=== PATIENT | female | born 1945 | race Caucasian/White ===

== ENCOUNTER 2017-03-08 12:00 | Inpatient (IN) | payer MEDICARE, BC ==
--- NOTE | 2017-03-08 12:50 | CT ---
NONCONTRAST CT OF THE BRAIN: INDICATION: Stroke-like symptoms with left-sided weakness, slurred speech, difficulty in arousal. COMPARISON: Prior noncontrast CT of the brain dated 12/15/16. FINDINGS: Chronic small-vessel white matter ischemic changes likely similar to the comparison examination. Sep roshni pellucidum and third ventricle are midline. No definite acute infarct, hemorrhage, or hydrocepha elida. The skull and extracranial soft tissues are unremarkable.. IMPRESSION: Stable chronic ischemic change. No definite acute intracranial abnormality is evident. Findings were called to the ER department at 12:22 p.m. on 03/08/17. CODE CR POS: JESSI
[2017-03-08 13:04] LABS: #Lymphocytes 0.8 thou/uL (1.20-3.40); #Monocytes 0.5 thou/uL (0.11-0.59); #Neutrophils 3.8 thou/uL (1.40-6.50); %Eosinophils 0.8 % (0.0-10.0); %Lymphocytes 14.7 % (21.0-51.0); %Monocytes 10.2 % (0.0-10.0); Hematocrit 35.6 % (36.0-47.0); Mean Platelet Volume 5.9 fL (7.4-10.4); Red Blood Cell (RBC) Count 3.72 mill/uL (4.20-5.40); White Blood Cell (WBC) Count 5.1 thou/uL (4.8-10.8)
[2017-03-08 13:10] LABS: PTT 27.4 SEC (22.9-36.1); Prothrombin Time 14.1 SEC (12.0-14.7)
[2017-03-08 13:16] LABS: ALT (SGPT) 21 U/L (8-55); AST (SGOT) 14 U/L (5-34); Alkaline Phosphatase 106 U/L (40-150); Anion Gap 9 mmol/L (10-20); BUN (Urea Nitrogen) 22 mg/dL (9.8-20.1); Bilirubin, Total 0.3 mg/dL (0.2-1.2); CK (CPK) 10 U/L (29-168); Calc. Creatinine Clearance 0 mL/min (70-130); Carbon Dioxide 30 mmol/L (23-31); Chloride 95 mmol/L (98-107); Estimated GFR-MDRD 35; Globulin 1.9 g/dL (2.4-3.5); Protein, Total 5.4 g/dL (6.0-8.3)
[2017-03-08 13:20] LABS: Troponin I 0.013 ng/mL (< 0.028)
--- NOTE | 2017-03-08 13:43 | CT ---
CT PERFUSION EVALUATION WITH A CTA OF THE NECK AND CTA OF THE HEAD UTILIZING IV CONTRAST AND 3D REFOR MATTED IMAGING: INDICATION: A 71-year-old female with stroke-like symptoms lasting for 1 hour prior to arrival with left-sided we akness, slurred speech, and difficulty in arousing the patient. COMPARISON: Prior exam dated 12/15/16. FINDINGS: When evaluating the perfusion images, the axial blood volume appears symmetric. There is some increa sed mean transit time involving diffusely the right cerebral hemisphere when compared to the contrala teral left cerebral hemisphere. The relative blood flow appears symmetric. When compared to the emanuel or CT examination, there has been some reconstitution of flow within the distal right MCA and opacifi cation of the MCA cortical branch is likely through collateralization. The remaining of the right in ternal carotid artery appears widely patent. Left carotid artery appears widely patent. The ACAs an d left MCA appear widely patent. The posterior cerebral arteries appear widely patent. The basilar and vertebral arteries appear widely patent. The prevertebral soft tissues appear similar-appearing. There is some soft tissue prominence seen along the right posterolateral aspect of the false vocal cords on image 102 series 2 which appear similar. Lung apices are clear. No acute osseous abnormali ty is evident. IMPRESSION: 1. 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 No new hemodynamically significant stenosis is evident. 2. Findings were called to Dr. Wesley at 12:45 p.m. on 05/08/16. 3. There are small areas of soft tissue prominence involving the posterior right false vocal cords w hich are stable to prior examination. Focal soft tissue lesion in this location cannot be entirely e xcluded. ENT consultation is recommended. No pathologically enlarged lymph nodes are evident. 4. There is prominent chronic small-vessel white matter ischemic change. CODE CR POS: JESSI
--- NOTE | 2017-03-08 13:54 | RAD ---
CHEST ONE VIEW HISTORY: Slurred speech. Dyspnea. COMPARISON: 11/17/2016 FINDINGS: Cardiac silhouette and pulmonary vasculature are unremarkable. Mediastinum is midline. There is no confluent airspace consolidation or evidence of pneumothorax. manager monitoring leads overlie the ches t. A rounded sphere overlying the left upper quadrant is partially visualized and may represent a pe rcutaneous feeding catheter. IMPRESSION: Chronic type findings appear stable. No active cardiopulmonary abnormalities are demonstrated. POS: JESSI
[2017-03-08] MEDS ORDERED: ISOVUE-370 76%-LOCM 1 ML ONE (15:53)
[2017-03-08] MEDS ORDERED: Sodium Chloride 0.9% 1,000 ML IV SCH (17:38)
[2017-03-08] MEDS ORDERED: Polyethylene Glycol 3350 17 GM Packet PO PRN (19:38)
[2017-03-08] MEDS ORDERED: Atorvastatin Calcium 20 MG TAB PO SCH (21:00)
[2017-03-08] MEDS: Sodium Chloride 0.9% 1,000 ML IV SCH (21:00)
[2017-03-08] MEDS: Ondansetron ODT 8 MG TAB PO SCH (21:08)
[2017-03-08] MEDS: Acetaminophen 500 MG TAB PO SCH (21:09)
[2017-03-08] MEDS: Magnesium Oxide 250 MG TAB PO SCH (21:09)
[2017-03-08] MEDS: Cipro 250 MG TAB PO SCH (21:09)
--- NOTE | 2017-03-08 21:35 | CON ---
DATE OF CONSULTATION: 03/08/2017 CONSULTING PHYSICIAN: Hospitalist Service. IMPRESSION: I believe that this woman's transient focal deficits on the left are related to a drop i n perfusion pressure related to hypotension and bradycardia. We are awaiting Dr. Moon's followup who was planning to do some cardiac monitoring. The sons report they have documented pulse rates in the 40s as well as blood pressures in the 60/30 range. She has been having some transient left hemip aresis when this occurs. It usually resolves in 5-10 minutes at most. She had a 2-hour episode prio r to admission. Her CTA showed the same chronic findings of an occlusion in the right middle cerebra l artery with some reconstitution of flow across the cortical collaterals. She is already on maximum antiplatelet therapy. The only option I could see at this point would be maintaining perfusion pres sure through a pacemaker possibly and modification of her blood pressure medications to try to preven t the hypotension.
[2017-03-09] MEDS: Cipro 250 MG TAB PO SCH ×2 (05:23→21:50)
[2017-03-09 05:54] LABS: #Eosinphils 0.2 thou/uL (0.0-0.7); #Lymphocytes 0.8 thou/uL (1.20-3.40); #Monocytes 0.6 thou/uL (0.11-0.59); #Neutrophils 2.8 thou/uL (1.40-6.50); %Basophils 0.2 % (0.0-1.0); %Eosinophils 4.8 % (0.0-10.0); %Lymphocytes 18.8 % (21.0-51.0); %Monocytes 13.2 % (0.0-10.0); Hematocrit 34.2 % (36.0-47.0); Red Blood Cell (RBC) Count 3.63 mill/uL (4.20-5.40); White Blood Cell (WBC) Count 4.4 thou/uL (4.8-10.8)
--- NOTE | 2017-03-09 06:17 | HP ---
DATE OF ADMISSION: 03/08/2017 HISTORY OF PRESENT ILLNESS: This is a 71-year-old white female with a history of CLL dating back to 2009, treated at [facility], who presents with a syncopal episode. The patient has a history of par oxysmal atrial fibrillation. Over the past year, she has had multiple episodes in which she is sitti ng at the chair and she simply tilts her head to the right and she becomes very limped and passes out . She has been to the hospital several times. This was worked up in 11/[address] Mcfarlane. She fierro s had 2 EEGs which were unremarkable with no acute changes on MRI. The etiology of her syncopal epis odes was felt to be cardiac in origin. Dr. Moon was consulted and we made some recommendations. However, the patient will also follow up. She has been seen at [facility] on several occasions. She was also recently discharged from [facility] yesterday and had a recurr ent episode this morning and was brought to the [facility] by [facility]. At this time, the 2 son s state that she is back to baseline, but just weak on her left side. Her blood pressure was noted t o be slightly elevated with a pulse ox of 99%. The patient is talking and answering questions approp riately. She is therefore being readmitted for reevaluation and treatment focussed on her cardiac hi story. PAST MEDICAL HISTORY: Includes CLL followed by Dr. Joy in [facility], paroxysmal atrial fibrill ation, recurrent UTI, renal cell carcinoma, status post left nephrectomy, reflex neurogenic bladder, allergies, hypertension, hyperlipidemia. She is a do not resuscitate. PAST SURGICAL HISTORY: Left hip fracture 09/2016, total hysterectomy, stem cell transplants, PEG tub e, T&A. MEDICATIONS: Cipro, Plavix, Lipitor, albuterol, amiodarone 200 q. day, vitamin D 1000 q. day, Flonas e, Keppra 500 b.i.d., magnesium, metoprolol 100 q. day, midodrine 2.5 t.i.d., Protonix 40 q. day, Jean-Paul aLax p.r.n. FAMILY HISTORY: Unremarkable. SOCIAL HISTORY: She is and has two sons, 4 grandkids, cared for by her son. She does not sm monico, does not drink. 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 REVIEW OF SYSTEMS: As above. PHYSICAL EXAMINATION: VITAL SIGNS: Temperature 98.3, pulse 45, respirations 16, blood pressure 212/92, pulse ox 99. GENERAL: The patient is in no acute distress at this time. HEENT: Relatively clear. NECK: Supple. HEART: Regular rate and rhythm. LUNGS: Clear. ABDOMEN: Soft. EXTREMITIES: No edema. NEUROLOGIC: Cranial nerves II through XII appear to be intact. She does have left-sided weakness of her left upper and lower extremity. Dr. Mcfarlane is present. LABORATORY DATA: White count 5.1, H&H 11 and 35. INR 1.1. Sodium 130, creatinine 1.45, blood sugar 152. ASSESSMENT: 1. Syncopal episode appears most likely to be cardiac in origin. 2. Chronic 1+ lymphocytic leukemia followed by Dr. Joy in [facility]. 3. Paroxysmal atrial fibrillation. 4. Recurrent urinary tract infection. 5. History of renal cell cancer, status post left nephrectomy. 6. Neurogenic bladder. 7. Allergies. PLAN: 1. Consult Neurology, discussed with Dr. Mcfarlane. 2. Consult Cardiology. 3. Hold metoprolol. 4. Suspect the patient's condition is related to her cardiac status. She may be having episodes of bradycardia. She may have sick sinus syndrome also. Dr. Moon will be reconsulted. We will [facility] for arrhythmias and consider pacemaker placement possibly.
[2017-03-09] MEDS ORDERED: Zolpidem Tartrate 5 MG TAB PO PRN (07:50)
--- NOTE | 2017-03-09 08:29 | PRG ---
DATE OF SERVICE: 03/09/2017 SUBJECTIVE: The patient is doing well this morning. No complaints of any chest pain, shortness of b reath, nausea, vomiting or headache. OBJECTIVE: VITAL SIGNS: Blood pressure 208/82, temperature 97.9, pulse 59, respiration rate 18, pulse ox 96. HEART: Regular rate and rhythm. LUNGS: Clear. ABDOMEN: Soft. EXTREMITIES: With no edema. LABORATORY: White count 4.4, H&H 11 and 34. ASSESSMENT: 1. Syncope, probably cardiac in origin. 2. Chronic lymphocytic leukemia, stable, followed by Dr. Joy. 3. Paroxysmal atrial fibrillation. 4. Recurrent urinary tract infection. 5. History of renal cell carcinoma, status post left nephrectomy. 6. Neurogenic bladder. 7. Allergies. PLAN: 1. Appreciate Dr. Mcfarlane. 2. Awaiting Dr. Moon this morning. 3. Will begin losartan 50 mg p.o. q.a.m. and Norvasc 5 mg p.o. at bedtime. 4. Will reconfirm the DNR status with the sons.
[2017-03-09] MEDS: Acetaminophen 500 MG TAB PO SCH ×3 (10:19→21:50)
[2017-03-09] MEDS: Clopidogrel Bisulfate 75 MG TAB PO SCH (10:20)
[2017-03-09] MEDS: Atorvastatin Calcium 40 MG TAB PO SCH (10:20)
[2017-03-09] MEDS: Magnesium Oxide 250 MG TAB PO SCH ×2 (10:21→21:50)
[2017-03-09] MEDS: Losartan Potassium 25 MG TAB PO SCH (10:21)
[2017-03-09] MEDS: Ondansetron ODT 8 MG TAB PO SCH ×2 (10:21→21:50)
[2017-03-09] MEDS: Multivits W-Minerals Liquid 15mL UDCUP PO SCH (14:07)
--- NOTE | 2017-03-09 14:21 | HP-2 ---
DATE OF H AND P: 03/09/2017 TIME OF SERVICE: 1:27 p.m. CODE STATUS: DNR. PRIMARY CARE PHYSICIAN: Rizwan Wilson M.D. ATTENDING: Ej Felicaino M.D., Cardiology. HISTORIAN: Patient. CHIEF COMPLAINT: Syncope. HISTORY OF PRESENT ILLNESS: This is a 71-year-old female with history of atrial fibrillation, questionable seizure history, who presents for syncope of 1 year. She states that she had a recent episode 1 day ago. This happened while she was sitting down. She did not have any nausea, diaphoresis, dizziness , headache or chest discomfort. She was tilting her head to the right side and went limp. She stated that her syncope episode was witnessed by her son and that she was out for approximately 1 minute. She woke up without any confusion or any other symptoms. She was then brought to [facility]. She states that she has had these episodes ongoing for about a year now and at home she measured her blood pressure of systolic 80, even pulse down in the 40s. She was previously worked up for this issue in 11/2016. At that time, Dr. Mcfarlane with Neurology felt that it was unlikely to be of neuro causes and that she had 2 EEG done, both of which were negative. She also was seen by Dr. Moon with Cardiology who felt that this may be a cardiac issue and recommended loop monitoring and to follow up with him for that as an outpatient. However, the patient stated that she has not had a chance to do so yet. At this time, the patient says that she does not have any current dizziness or any further syncope episode. Patient's son and review of records from [facility] indicate patient was recently diagnosed with acute ischemic stroke and started on plavix 3 days ago. PAST MEDICAL HISTORY: 1. CLL. 2. Paroxysmal atrial fibrillation. 3. Recurrent UTI. 4. Renal cell carcinoma, status post left nephrectomy. 5. Hypertension. 6. Hyperlipidemia. 7. Neurogenic bladder. 8. Likely recent stroke. PAST SURGICAL HISTORY: 1. Left hip surgery. 2. Hysterectomy. 3. PEG tube placement. 4. Stem Cell Transplant MEDICATIONS: 1. Tylenol 500 mg p.o. t.i.d. 2. Amiodarone 200 mg p.o. daily. 3. Amlodipine 500 mg p.o. at bedtime. 4. Aspirin 81 mg p.o. daily. 5. Atorvastatin 40 mg p.o. daily. 6. Vitamin D3 1000 units p.o. daily. 7. Ciprofloxacin 250 mg p.o. b.i.d. 8. Plavix 75 mg p.o. daily. 9. Multivitamin. 10. Losartan 50 mg p.o. daily. 11. Magnesium oxide 500 mg p.o. b.i.d. 12. Zofran 8 mg p.o. b.i.d. 13. Pantoprazole 40 mg p.o. b.i.d. 14. MiraLax 17 grams p.o. p.r.n. for constipation. 15. Zolpidem 5 mg p.o. at bedtime p.r.n. for insomnia. FAMILY HISTORY: She states that her son has a pacemaker placed at age 40 for likely atrial fibrillation. SOCIAL HISTORY: She states that she never or used alcohol and she lives at home with her son. ALLERGIES: Denies any known drug allergies. REVIEW OF SYSTEMS: General: Denies fever, chills, night sweats, or fatigue. Eyes: Denies vision change. ENT: Denies nasal congestion. Respiratory: Denies coughing or shortness of breath. Cardiovascular: Denies chest pain or palpitations. GI: Denies nausea, vomiting or abdominal pain. : Endorses recurrent UTI. Skin: Denies any skin lesions. Musculoskeletal: Denies pain or tenderness. Neurologic: Endorses left-sided weakness and syncope. Denies dizziness or headaches. PHYSICAL EXAMINATION: VITAL SIGNS: Blood pressure 200/80, temperature 97.8, pulse 68, respirations 16 , O2 95% on room air. GENERAL: Alert, oriented, not in acute distress, but does appear fatigued. EYES: Sclerae not injected. ENT: Oropharynx is moist. NECK: Supple, without lymphadenopathy and a good carotid upstroke was present. CARDIOVASCULAR: Regular rate and rhythm. There was a faint 1/6 systolic murmur present, loudest in the right upper sternal border. RESPIRATORY: Normal effort without retraction. Clear to auscultation bilaterally. SKIN: Warm and dry without cyanosis or lesion. ABDOMEN: Soft, not tender to palpation. Bowel sounds heard throughout. There is a PEG tube in place and site is clean without discharge. EXTREMITIES: No cyanosis or pitting edema. MUSCULOSKELETAL: Muscle strength was 5/5 on the right side, but 4/5 in upper and lower extremities. NEUROLOGIC: Sensation was grossly intact. LABORATORY DATA: WBC 4.4, hemoglobin 11.4, platelet 247. Sodium 136, potassium 3.6, chloride 95, bicarbonate 30, creatinine 1.45, BUN 22, glucose 102. CT angio of head, chronic occlusion of right MCA. CT without contrast of brain, chronic small vessel white matter ischemic change from CT comparisons of 12/15/2016. Chest x-ray, no acute cardiopulmonary abnormalities are demonstrated. ASSESSMENT AND PLAN: 1. Syncope, in this patient her history and physical exam would suggest likely cardiac causes. Plan is for overnight monitoring for any dysrhythmia, follow with outpatient loop monitoring to detect dysrhythmia. Other causes consider is orthostatic hypotension though at this time the patient is actually hypertensive, consider aortic stenosis as patient did have mild to moderate aortic stenosis on previous echocardiogram. We will get a repeat echocardiogram at this visit. 2. Atrial fibrillation. Patient is currently in sinus rhythm. We will recommend patient follow up as an outpatient for her atrial fibrillation and for review of her amiodarone and metoprolol, we will likely reduce her metoprolol by 50% at this visit due to her syncopal episode. 3. Acute kidney injury. The patient does have a creatinine above baseline from approximately 1 to 1.45. This may be a result of her hypertension, currently being treated. 4. Hypertensive urgency. The patient is currently on losartan and Norvasc in addition to her normal blood pressure medications. [facility]
[2017-03-09 15:14] LABS: Bilirubin Negative (Negative); Blood, Urine Negative (Negative); Glucose, Urine (Dipstick) Negative (Negative); Ketone, Urine Negative (Negative); Nitrite Negative (Negative); Protein, Urine (Dipstick) Negative (Neg-Trace); Urobilinogen 0.2 mg/dL (0.2-1.0)
[2017-03-09 15:16] LABS: Bacteria/HPF None Seen HPF (None Seen); Hyaline Casts/LPF 0-3 HYALINE CAST LPF (0-3 Hyaline); RBC/HPF 0-3 HPF (0-3); Squamous Epithelial None Seen HPF (0-3); WBC/HPF 0-3 HPF (0-3)
[2017-03-09] MEDS: Sodium Chloride 0.9% 1,000 ML IV SCH (15:54)
[2017-03-09 16:17] VITALS: BMI 24.4
--- NOTE | 2017-03-09 21:17 | CON ---
DATE OF CONSULTATION: 03/09/2017 HISTORY OF PRESENT ILLNESS: Paulette Nixon is a 71-year-old white female, I initially evaluated in 11/2016. She apparently was hospitalized in August or September for a prolonged period of time at [facility] here in town. She says her vision would go black and she would feel lightheaded but says later this would resolve. She apparently never had true syncope with those episodes. Two EEGs there were apparently normal; however, she was placed on Keppra. It was felt that she had near syncopal episodes, losing her vision for 5-10 seconds at a time and this would return, but never had true syncope on evaluation in November. She was monitored and was somewhat bradycardiac and her beta santy was discontinued. She was to come to the office at discharge to have a 30-day monitor placed and multiple attempts were made to get her into the office to get that taken care of, the last of which was 01/31/2017, however, she never did come for monitoring. She again had recently been hospitalized at [facility] and apparently was discharged a day or two prior to this admission. She now is hospitalized with recurrent episode of left-sided weakness. Reportedly, she has a heart rate of 40 at times at home even after stopping the beta santy; however, to my knowledge that has never been documented. It was felt by Dr. Mcfarlane that these symptoms were probably due to hypotension and bradycardia. PAST MEDICAL HISTORY: Paroxysmal atrial fibrillation, chronic lymphocytic leukemia status post stem cell transplant, left renal cell carcinoma with partial nephrectomy, prolonged hospitalization for sepsis syndrome at [facility]. OPERATIONS: Hysterectomy, tonsillectomy, stem cell transplant, left kidney partial nephrectomy, neuroma removal, right carpal tunnel repair, PEG tube placement, hip fracture, status post open reduction internal fixation in 2016. MEDICATIONS: At home include amiodarone 200 mg daily, aspirin 81 daily, atorvastatin 40 at bedtime, Cipro 250 b.i.d., clopidogrel 75 daily, magnesium 250 b.i.d., pantoprazole 40 b.i.d., MiraLax. Metoprolol 100 is listed amongst her home medications, although I am uncertain if she is taking that. ALLERGIES: None. SOCIAL HISTORY: She is a . Her , Brown Nixon was a patient of mine. FAMILY HISTORY: Father had heart disease. REVIEW OF SYSTEMS: Twelve point review of systems otherwise unremarkable. PHYSICAL EXAMINATION: VITAL SIGNS: Blood pressure of 174/86, pulse of 61. HEENT: PERRL. NECK: Supple. CHEST: Clear. CARDIAC: S1 and S2 are normal, without any S3 or S4. There is 1-2/6 systolic murmur in the aortic area. ABDOMEN: Normal bowel sounds, without tenderness or organomegaly. EXTREMITIES: Revealed no clubbing, cyanosis or edema. NEUROLOGIC: Grossly intact. SKIN: Warm and dry. LABORATORY DATA: EKG revealed normal sinus rhythm with a rate of 63 beats per minute, left axis deviation. Hemoglobin 11.4, hematocrit 34.2, white count 4400 , platelets 247. Sodium 135, potassium 3.6, chloride 95, carbon dioxide 30, BUN 22, creatinine 1.45. Cardiac enzymes were unremarkable. Cholesterol 138, triglycerides 96, HDL 41, and LDL 78. IMPRESSION: 1. Left-sided weakness, probable TIA secondary to hypotension. Apparently at home, she has had heart rates in the 40s although it has never been documented. It also somewhat unclear if she is still taking metoprolol 100 at home, this was stopped last admission. 2. History of atrial fibrillation, currently on amiodarone. 3. Dysphagia status post PEG tube placement. 4. History of stroke. 5. Probable recurrent aspiration in the past. 6. Chronic lymphocytic leukemia. 7. Partial nephrectomy for renal cell carcinoma. PLAN: Multiple attempts were made to try to get the patient to the office for a 30-day outpatient monitor to follow her heart rate; however, she never did come to get the monitor. Therefore, I would recommend monitoring over the course in the next 2 or 3 days to see if she has any recurrence of extreme bradycardia. If she does, then pacemaker should be placed. On the other hand, if she has monitored and no significant arrhythmias are seen, then I would recommend placing a LINQ implantable loop recorder. JESSICA
[2017-03-09] MEDS: Amlodipine 5 MG TAB PO SCH (21:50)
[2017-03-10] MEDS: Cipro 250 MG TAB PO SCH ×2 (05:12→21:09)
[2017-03-10] MEDS: Multivits W-Minerals Liquid 15mL UDCUP PO SCH (09:24)
[2017-03-10] MEDS: Atorvastatin Calcium 40 MG TAB PO SCH (09:25)
[2017-03-10] MEDS: Acetaminophen 500 MG TAB PO SCH ×3 (09:25→21:09)
[2017-03-10] MEDS: Losartan Potassium 25 MG TAB PO SCH (09:25)
[2017-03-10] MEDS: Clopidogrel Bisulfate 75 MG TAB PO SCH (09:25)
[2017-03-10] MEDS: Magnesium Oxide 250 MG TAB PO SCH ×2 (09:26→21:10)
[2017-03-10] MEDS: Ondansetron ODT 8 MG TAB PO SCH ×2 (09:26→21:10)
[2017-03-10] MEDS: Sodium Chloride 0.9% 1,000 ML IV SCH (14:16)
[2017-03-10] MEDS: Amlodipine 5 MG TAB PO SCH (21:09)
[2017-03-11] MEDS: Cipro 250 MG TAB PO SCH ×2 (05:05→22:06)
[2017-03-11] MEDS: Sodium Chloride 0.9% 1,000 ML IV SCH (07:13)
[2017-03-11] MEDS: Clopidogrel Bisulfate 75 MG TAB PO SCH (09:20)
[2017-03-11] MEDS: Losartan Potassium 25 MG TAB PO SCH (09:20)
[2017-03-11] MEDS: Magnesium Oxide 250 MG TAB PO SCH ×2 (09:20→22:10)
[2017-03-11] MEDS: Acetaminophen 500 MG TAB PO SCH ×3 (09:20→22:06)
[2017-03-11] MEDS: Ondansetron ODT 8 MG TAB PO SCH ×2 (09:20→22:12)
[2017-03-11] MEDS: Multivits W-Minerals Liquid 15mL UDCUP PO SCH (09:21)
[2017-03-11] MEDS: Atorvastatin Calcium 40 MG TAB PO SCH ×2 (10:12→22:09)
[2017-03-11] MEDS ORDERED: Milk Of Magnesia 30 ML UDCUP PO PRN (12:26)
[2017-03-11] MEDS ORDERED: Ondansetron ODT 8 MG TAB PO PRN (17:05)
[2017-03-11] MEDS: Amlodipine 10 MG TAB PO SCH (22:07)
[2017-03-12] MEDS: Sodium Chloride 0.9% 1,000 ML IV SCH (06:03)
[2017-03-12] MEDS: Cipro 250 MG TAB PO SCH ×2 (06:05→22:17)
[2017-03-12] MEDS ORDERED: Lidocaine 2% w/Epinephrine 1:200K 20 ML VIAL ONE (06:36)
[2017-03-12] MEDS ORDERED: Lidocaine 1% w/Epinephrine 1:200K 30 ML VIAL ONE (08:15)
--- NOTE | 2017-03-12 08:39 | PRG ---
DATE OF SERVICE: 03/12/2017 SUBJECTIVE: No complaints of any chest pain, shortness of breath, nausea or vomiting by patient. Th e patient has had no syncopal episodes since admission. OBJECTIVE: VITAL SIGNS: Temperature 98.6, pulse 90, respirations 16, pulse ox 97, blood pressure 146/89. HEART: Regular rate and rhythm. LUNGS: Clear. ABDOMEN: Soft. LABS: None. ASSESSMENT: 1. Syncopal episode, most likely cardiac in origin; however, no arrhythmias noted thus far on teleme try. 2. Chronic lymphocytic leukemia, followed by Dr. [facility] and [facility]. 3. Paroxysmal atrial fibrillation. 4. Recurrent urinary tract infection. 5. History of renal cell cancer, status post left nephrectomy. 5. Neurogenic bladder. 6. Allergies. PLAN: 1. Discuss with Dr. Moon. The plan is to place an implantable loop recorder to evaluate for arr hythmias. 2. We will consult physical therapy. The patient normally does sit in the chair at home. Her episo patrice also corresponds frequently in a chair.
[2017-03-12 08:42] LABS: #Eosinphils 0.2 thou/uL (0.0-0.7); #Lymphocytes 0.9 thou/uL (1.20-3.40); #Monocytes 0.5 thou/uL (0.11-0.59); %Basophils 0.4 % (0.0-1.0); %Eosinophils 4.1 % (0.0-10.0); %Lymphocytes 15.1 % (21.0-51.0); %Monocytes 9.1 % (0.0-10.0); Hematocrit 34.2 % (36.0-47.0); Red Blood Cell (RBC) Count 3.59 mill/uL (4.20-5.40); White Blood Cell (WBC) Count 5.6 thou/uL (4.8-10.8)
[2017-03-12 09:05] LABS: Anion Gap 9 mmol/L (10-20); BUN (Urea Nitrogen) 23 mg/dL (9.8-20.1); Calc. Creatinine Clearance 42 mL/min (70-130); Carbon Dioxide 34 mmol/L (23-31); Chloride 94 mmol/L (98-107); Estimated GFR-MDRD 44
[2017-03-12] MEDS: Acetaminophen 500 MG TAB PO SCH ×3 (09:45→22:17)
[2017-03-12] MEDS: Magnesium Oxide 250 MG TAB PO SCH ×2 (09:46→22:17)
[2017-03-12] MEDS: Ondansetron ODT 8 MG TAB PO SCH ×2 (09:46→22:17)
[2017-03-12] MEDS: Losartan Potassium 25 MG TAB PO SCH (09:46)
[2017-03-12] MEDS: Clopidogrel Bisulfate 75 MG TAB PO SCH (09:46)
[2017-03-12] MEDS: Multivits W-Minerals Liquid 15mL UDCUP PO SCH (11:38)
[2017-03-12] MEDS: Amlodipine 10 MG TAB PO SCH (22:17)
[2017-03-12] MEDS: Atorvastatin Calcium 40 MG TAB PO SCH (22:18)
[2017-03-13] MEDS: Sodium Chloride 0.9% 1,000 ML IV SCH (01:57)
[2017-03-13] MEDS: Cipro 250 MG TAB PO SCH (05:57)
--- NOTE | 2017-03-13 08:30 | DIS ---
DISCHARGE DIAGNOSES: 1. Syncope episode, probable cardiac in origin. 2. Chronic lymphocytic leukemia. 3. Paroxysmal atrial fibrillation. 4. Recurrent urinary tract infection. 5. History of renal cell cancer, status post left nephrectomy. 6. Neurogenic bladder. 7. Allergies. 8. Prognosis poor. DISCHARGE MEDICATIONS: Amiodarone 200 mg daily, Norvasc 10 p.o. at bedtime, aspirin 81 mg, atorvast atin 40 daily, vitamin D3 1000 mg daily, Plavix 75 mg daily, losartan 25 mg daily, multivitamin daily , Protonix 40 daily. BRIEF HISTORY: This is a 71-year-old white female with history of CLL dating back to 2009, treated [facility] who presents with a syncopal episode. The patient has had a history of paroxysmal at rial fibrillation. Over the past year she has had multiple episodes where she is sitting in a chair and simply passes out, tilts her head to the right and becomes limp. She has been placed in the hosp ital several times. She has been evaluated by Dr. Reyna. She has had two normal EEGs. Her MRIs fierro ve remained stable. Her episodes are felt to be cardiac in origin. However, Dr. Moon has been c onsulted. Multiple attempts have been made to obtain a Holter monitor, however, the patient has not followed up with Dr. Moon. HOSPITAL COURSE: The patient was admitted. She was monitored on telemetry. No cardiac dysrhythmias were noted. An implantable loop recorder was placed by Dr. Moon. The patient has remained stab le throughout. However, she is very weak. She has some mild left-sided weakness. She is coherent, answers questions appropriately. However, she has limited physical activity. She has always failed her barium swallow test. However, she declined the use of her PEG tube and PEG feeds. She insists o n eating regular foods. A dietary consult was obtained and the patient was given instructions. The patient will be transferred to residential facility for further physical therapy. The patient de clines any hospice placement. She wants to go to have physical therapy and then to be discharged to home. Laboratory; white count 5.5, H&H 11 and 34. Electrolytes: Sodium 133, potassium 3.7, creatinine 1.2 , BUN 23. Echo report, final report is pending.
[2017-03-13] MEDS: Magnesium Oxide 250 MG TAB PO SCH (09:47)
[2017-03-13] MEDS: Acetaminophen 500 MG TAB PO SCH ×2 (09:47→16:59)
[2017-03-13] MEDS: Ondansetron ODT 8 MG TAB PO SCH (09:47)
[2017-03-13] MEDS: Clopidogrel Bisulfate 75 MG TAB PO SCH (09:47)
[2017-03-13] MEDS: Losartan Potassium 25 MG TAB PO SCH (09:48)
[2017-03-13] MEDS: Multivits W-Minerals Liquid 15mL UDCUP PO SCH (09:48)
[2017-03-13 11:44] VITALS: TEMP 98.4
[2017-03-13 15:51] VITALS: BP 156/88
== END 2017-03-13 16:58 | DRG 261 ==
LOC: ERS 12:00 → 2SE 17:26
PROVIDERS: ADMIT Family Medicine; ATTEND Family Medicine
PROC: 0JH602Z Insertion of Monitoring Device into Chest Subcutaneous Tissue and Fascia, Open Approach (ICD-10-PCS; principal; 2017-03-12)
DX: R00.1 Bradycardia, unspecified (principal); C91.10 Chronic lymphocytic leukemia of B-cell type not having achieved remission; N17.9 Acute kidney failure, unspecified; I66.01 Occlusion and stenosis of right middle cerebral artery; I95.9 Hypotension, unspecified; N39.0 Urinary tract infection, site not specified; N31.9 Neuromuscular dysfunction of bladder, unspecified; Z93.1 Gastrostomy status; I69.391 Dysphagia following cerebral infarction; R13.10 Dysphagia, unspecified; I48.0 Paroxysmal atrial fibrillation; Z85.528 Personal history of other malignant neoplasm of kidney; I10 Essential (primary) hypertension; I16.0 Hypertensive urgency; Z66 Do not resuscitate; E78.5 Hyperlipidemia, unspecified; Z79.02 Long term (current) use of antithrombotics/antiplatelets
CPT/HCPCS: 0042T; 33282; 36415; 36416; 70450; 70496; 70498; 71010; 80048; 80053; 80061; 81003; 81015; 82550; 82553; 84484; 85025; 85610; 85730; 93005; 93306; A4216; C1764; G8978-GP-CL; G8979-GP-CJ; G8996-GN-CN; G8997-GN-CM

== ENCOUNTER 2017-05-23 22:34 | Emergency (ER) | payer MEDICARE, BC ==
[2017-05-23 23:37] LABS: #Eosinphils 0.2 thou/uL (0.0-0.7); #Lymphocytes 1.1 thou/uL (1.20-3.40); #Monocytes 0.7 thou/uL (0.11-0.59); #Neutrophils 8.2 thou/uL (1.40-6.50); %Basophils 0.3 % (0.0-1.0); %Eosinophils 1.7 % (0.0-10.0); %Lymphocytes 10.6 % (21.0-51.0); %Monocytes 6.5 % (0.0-10.0); %Neutrophils 80.9 % (42.0-75.0); Hemoglobin 10.5 g/dL (12.0-16.0); Mean Corpuscular HGB CONC 32.7 g/dL (32.0-36.0); Mean Corpuscular Hemoglobin 32.3 pg (27.0-31.0); Mean Corpuscular Volume 98.6 fl (81.0-99.0); Platelet Count 297 thou/uL (130-400); RBC Distribution Width 15.6 % (11.5-14.5); Red Blood Cell (RBC) Count 3.27 mill/uL (4.20-5.40); White Blood Cell (WBC) Count 10.2 thou/uL (4.8-10.8)
[2017-05-23 23:57] LABS: Anion Gap 12 mmol/L (10-20); BUN (Urea Nitrogen) 17 mg/dL (9.8-20.1); Calc. Creatinine Clearance 0 mL/min (70-130); Calcium 8.8 mg/dL (7.8-10.44); Carbon Dioxide 24 mmol/L (23-31); Chloride 98 mmol/L (98-107); Estimated GFR-MDRD 42; Glucose 118 mg/dL (83-110); Potassium 4.4 mmol/L (3.5-5.1); Sodium 130 mmol/L (136-145)
[2017-05-24 00:22] LABS: Bilirubin Negative (Negative); Blood, Urine Moderate (Negative); Clarity TURBID (Clear); Glucose, Urine (Dipstick) Negative (Negative); Leukocyte Large (Negative); Nitrite Negative (Negative); Protein, Urine (Dipstick) 30 mg/dL (Neg-Trace); Specific Gravity, Urine 1.012 (1.002-1.036); Urobilinogen 0.2 mg/dL (0.2-1.0)
[2017-05-24 00:24] LABS: Bacteria/HPF 4+ HPF (None Seen)
[2017-05-24 00:27] LABS: Pathc Cast-AUWi Flag 25.45 (0-2.49); Yeast-AUWi Flag 136.7 (0-25.0)
[2017-05-24 00:31] LABS: Hyaline Casts/LPF NONE SEEN LPF (0-3 Hyaline); Other Casts/LPF None Seen LPF (0-3 Hyaline); Yeast-All Forms None Seen HPF (None Seen)
--- NOTE | 2017-05-24 08:26 | CT ---
PRELIMINARY REPORT/[facility]/EMERGENCY AFTER HOURS PROCEDURE: EXAM: CT Head Without Intravenous Contrast CLINICAL HISTORY: 71 years old, female; Signs and symptoms; Altered mental status/memory loss; Confusion or disorientat ion; Patient HX: Er 5; Ams/confusion; 71 yo f. Pt presents to ed with decreased urine output after fo francis replacement this morning. Pt's son on adds to HX that he has noted pt has been more confused over the past few days. Past medical history includes history of hypertension, CVA, TIA (03/07/17) TECHNIQUE: Axial computed tomography images of the head/brain without intravenous contrast. COMPARISON: No relevant prior studies available. FINDINGS: Brain: Mild volume loss No hemorrhage. Severe white matter disease. No edema. Ventricles: Unremarkable. No ventriculomegaly. Bones/joints: Unremarkable. No acute fracture. Soft tissues: Unremarkable. Sinuses: Minimal air fluid level in the right sphenoid sinus. Minimal mucosal thickening in the left sphenoid sinus Mastoid air cells: Unremarkable as visualized. No mastoid effusion. IMPRESSION: No intracranial hemorrhage.Please see discussion above. Thank you for allowing us to participate in the care of your patient. Dictated and Authenticated by: Jose Stein MD 05/24/2017 12:40 AM Central Time ([place] & [place]) FINAL REPORT BY DR. TIWARI EMERGENCY AFTER HOURS STUDY CT BRAIN NONCONTRAST: DATE: 05/24/17 TIME: 0033 HOURS HISTORY: 71-year-old female with altered mental status, confusion. COMPARISON: 03/08/17, 12/15/16, and 11/11/16. FINDINGS: The lateral ventricles have been slowly increasing in size compared to previous studies, and the righ t lateral ventricle is asymmetrically larger than the left. Currently, the degree of ventriculomegaly is mild to moderate. The third ventricle is also mildly to moderately dilated, and also slightly lar jax than prior studies. The fourth ventricle is prominent, but still within normal limits in size. Th ere is no mass effect. However, there is a new left to right midline shift of the septum pellucidum a distance of 5 mm. The reason for this is uncertain, but it could be on an ex vacuo basis, with asymm etrically greater degree of parenchymal volume loss on the right compared to the left, which would al so explain the asymmetrically larger right lateral ventricle compared to the left. The alternative ex planation for the increasing ventriculomegaly could be normal pressure hydrocephalus, but that would not explain the paradoxical left to right midline shift. Clinical correlation is recommended regardin g signs and symptoms of NPH (gait apraxia, urinary incontinence, and dementia). There is a small focu s of encephalomalacia and gliosis at the head of the right caudate nucleus and adjacent internal and external capsules, probably representing a small old infarction, unchanged. Again noted are the sever e chronic ischemic white matter changes in the periventricular, deep, and subcortical white matter. T here is no acute intra-axial or extra-axial hemorrhage. The calvarium is intact. No major disagreemen t with the preliminary report by [facility]. IMPRESSION: 1. Severe chronic ischemic white matter changes. 2. Slowly progressing ventriculomegaly, asymmetrically greater on the right. See above discussion. 3. Small old infarction at right corpus striatum. 4. No acute intracranial hemorrhage. MARY Lora POS: QUENTIN
== END 2017-05-24 03:23 | disposition home or self-care (01) ==
LOC: ERS 22:34
DX: E86.0 Dehydration (principal); N30.91 Cystitis, unspecified with hematuria; I48.91 Unspecified atrial fibrillation; E78.5 Hyperlipidemia, unspecified; I10 Essential (primary) hypertension; Z79.82 Long term (current) use of aspirin; Z79.899 Other long term (current) drug therapy
CPT/HCPCS: 36415; 70450; 80048; 81003; 81015; 85025; 96361; 96374; J0696